=== PATIENT | female | born 1985 | race Caucasian/White ===

== ENCOUNTER 2016-11-21 18:27 | Emergency (ER) | payer OTHER ==
[2016-11-21] MEDS ORDERED: DILAUDID IM ONE (19:52)
[2016-11-21] MEDS ORDERED: PHENERGAN IM ONE (19:53)
--- NOTE | 2016-11-21 19:53 | PROVIDER DOCUMENTATION ---
HPI-Headache - General Chief Complaint: Headache Stated Complaint: HEADACHE Time Seen by Provider: 11/21/16 19:48 Allergies/Adverse Reactions: Patient Allergies Allergy/AdvReac Type Severity Reaction Status Date / Time ketorolac tromethamine * Allergy Mild chest Verified 11/21/16 18:36 [From Toradol] pain, wheezing Penicillins Allergy HIVES Verified 11/21/16 18:36 Home Medications: Home Medication List Medication Instructions Recorded Confirmed Last Taken Type Alprazolam [Xanax] 1 mg PO TID 07/03/15 11/21/16 10/07/16 History - History of Present Illness-Headache Nature of Presenting Problem: 31 yof c/o migraine, with nausea and vomiting. Pressure in frontal region of head. Pt denies any cold symptoms. Pt states, "It feels like one of my previous migraine headaches." Headache Location: reports: frontal Past History - Adult - PAST MEDICAL HISTORY-ADULT Major Childhood Illnesses: reports: denies history Cardiovascular: reports: denies history Respiratory: reports: asthma Gastrointestinal: reports: GERD Obstetrical/Gynecological: reports: denies history Genitourinary: reports: denies history Musculoskeletal: reports: denies history Neurological: reports: denies history, degenerative disease Psychiatric: reports: anxiety, other (panic attacks) Endocrine/Immune: reports: denies history Other Conditions: reports: denies history - PRIOR SURGERIES/PROCEDURES Surgical/Procedure History: reports: BTL, - PRIOR HOSPITALIZATIONS Prior Hospitalizations: reports: none - IMMUNIZATION STATUS Childhood Immunizations: See Nurse Assessment Flu Vaccine: See Nurse Assessment - FAMILY HISTORY Family History: reviewed, not pertinent Departure - Departure Time of Disposition Order: [id number] DIAGNOSIS: Migraine Qualifiers: Migraine type: without aura Status migrainosus presence: with status migrainosus Intractability: intractable Qualified Code(s): G43.011 - Migraine without aura, intractable, with status migrainosus Disposition: HOME 01 Certified Medical Emergency: Emergent Condition: Stable Additional Instructions: ED Follow Up Instructions: You have been treated by a care provider in the Emergency Department. These instructions are being provided to you so you can have an understanding of how to care for yourself upon discharge. Upon discharge from the Emergency Department, you are responsible for making arrangements for follow-up care by a physician of your choice. Take all prescribed medications as directed. Return to the Emergency Department immediately for any new or worsening symptoms. You may call the Physician Referral phone number at [phone] to obtain a list of Physicians who are taking new patients.
[2016-11-21 20:59] VITALS: BP 132/067
== END 2016-11-21 20:58 | disposition home or self-care (01) ==
LOC: P.ED 18:27
DX: G43.011 Migraine without aura, intractable, with status migrainosus (principal); R51 Headache; R11.2 Nausea with vomiting, unspecified; F41.9 Anxiety disorder, unspecified; Z79.899 Other long term (current) drug therapy
CPT/HCPCS: 96372; J1170; J2550